=== PATIENT | male | born 1945 | race Caucasian/White ===

== ENCOUNTER → 2019-04-05 | Outpatient (CLI) | payer MEDICARE ==
--- NOTE | 2019-04-05 14:51 | Diagnostic Imaging Report ---
INDICATION: Right foot pain. TIME OF EXAM: 02:18 p.m. FINDINGS: Three views of the right foot were obtained. The metatarsals are intact. The phalanges appear to be intact. Mid foot and hind foot are unremarkable. No fractures are seen. IMPRESSION: No acute bony abnormality is detected. Dictated by: Dictated on workstation # [id number]
== END ==
LOC: RAD 14:03
PROVIDERS: ATTEND Pediatrics
DX: M79.671 Pain in right foot (principal)
CPT/HCPCS: 73630